=== PATIENT | female | born 1990 | race Caucasian/White ===

== ENCOUNTER 2021-10-06 04:42 | Emergency (ER) | payer BC ==
[2021-10-06 06:22] LABS: ESTIMATED GFR > 60 mL/min (>60)
== END 2021-10-06 08:53 | disposition home or self-care (01) ==
LOC: JD.ED 04:42
DX: O20.0 Threatened abortion (principal); Z3A.01 Less than 8 weeks gestation of pregnancy; Z88.0 Allergy status to penicillin
CPT/HCPCS: 36415; 76817; 76817-26; 80053; 81001; 81003; 84702; 85025; 86850; 86900; 86901; 99283; 99284-25

== ENCOUNTER 2022-01-10 04:25 | Emergency (ER) | payer BC ==
[2022-01-10 05:24] LABS: ESTIMATED GFR 119 mL/min (>60)
== END 2022-01-10 06:29 | disposition home or self-care (01) ==
LOC: JD.ED 04:25
DX: O99.891 Other specified diseases and conditions complicating pregnancy (principal); M79.661 Pain in right lower leg; M79.662 Pain in left lower leg; Z88.0 Allergy status to penicillin; Z3A.20 20 weeks gestation of pregnancy
CPT/HCPCS: 36415; 80053; 85025; 85610; 85730; 93970; 93970-26; 99284

== ENCOUNTER 2022-05-08 07:02 | Inpatient (IN) | payer BC ==
[~2022-05-08 07:02] MED LIST: Lidocaine 1% 10 ML MDV ONE
[2022-05-08] MEDS ORDERED: Ondansetron 4 MG/2 ML SDV IVPUSH PRN (07:08)
[2022-05-08] MEDS ORDERED: Sodium Chloride 0.9% 10 ML Syringe FLUSH PRN (07:08)
[2022-05-08] MEDS ORDERED: Nalbuphine 10 MG/0.5 ML Syringe IVPUSH PRN (07:08)
[2022-05-08] MEDS ORDERED: Acetaminophen 325 MG Tab PO PRN ×2 (07:08→19:16)
[2022-05-08] MEDS ORDERED: Oxytocin/Lactated Ringers 10 UNIT/1,000 ML BAG IV SCH ×2 (07:15)
[2022-05-08] MEDS: Lactated Ringers 1,000 ML IV SCH ×2 (07:55→14:29)
[2022-05-08 08:02] LABS: ESTIMATED GFR 102 mL/min (>60)
[2022-05-08] MEDS ORDERED: Sodium Chloride 0.9% 10 ML Syringe FLUSH SCH (09:00)
[2022-05-08] MEDS ORDERED: ePHEDrine 50 MG/ML SDV IVPUSH PRN (13:28)
[2022-05-08] MEDS ORDERED: diphenhydrAMINE 50 MG/ML SDV IVPUSH PRN (13:28)
[2022-05-08] MEDS ORDERED: Bupivacaine/fentaNYL/NS 100 ML Bag EPIDUR PRN (13:28)
[2022-05-08] MEDS ORDERED: fentaNYL 100 MCG/2 ML SDV EPIDUR PRN (13:28)
[2022-05-08] MEDS ORDERED: Misoprostol 200 MCG Tab PO STA (18:41)
[2022-05-08] MEDS ORDERED: Witch Hazel Medicated Pads 40/Jar TOP PRN (19:16)
[2022-05-08] MEDS ORDERED: Benzocaine/Menthol 20%-0.5% Spray 78 GM Cannister TOP PRN (19:16)
[2022-05-08] MEDS ORDERED: Docusate Sodium 100 MG Cap PO PRN (19:16)
[2022-05-09] MEDS ORDERED: Atropine/Diphenoxylate 0.025-2.5 MG Tab PO PRN (00:16)
[2022-05-09] MEDS: Ibuprofen 600 MG Tab PO PRN ×2 (07:31→15:37)
== END 2022-05-10 10:40 | disposition home or self-care (01) | DRG 560 ==
LOC: JD.OB 07:02
PROVIDERS: ADMIT Obstetrics & Gynecology; ATTEND Obstetrics & Gynecology
PROC: 10D07Z6 Extraction of Products of Conception, Vacuum, Via Natural or Artificial Opening (ICD-10-PCS; principal; 2022-05-08)
PROC: 10907ZC Drainage of Amniotic Fluid, Therapeutic from Products of Conception, Via Natural or Artificial Opening (ICD-10-PCS; 2022-05-08)
PROC: 3E033VJ Introduction of Other Hormone into Peripheral Vein, Percutaneous Approach (ICD-10-PCS; 2022-05-08)
PROC: 0KQM0ZZ Repair Perineum Muscle, Open Approach (ICD-10-PCS; 2022-05-08)
PROC: 3E0R3BZ Introduction of Anesthetic Agent into Spinal Canal, Percutaneous Approach (ICD-10-PCS; 2022-05-08)
PROC: 00HU33Z Insertion of Infusion Device into Spinal Canal, Percutaneous Approach (ICD-10-PCS; 2022-05-08)
DX: O13.4 Gestational [pregnancy-induced] hypertension without significant proteinuria, complicating childbirth (principal); O24.424 Gestational diabetes mellitus in childbirth, insulin controlled; O75.81 Maternal exhaustion complicating labor and delivery; Z3A.37 37 weeks gestation of pregnancy; Z37.0 Single live birth; Z79.4 Long term (current) use of insulin; O70.1 Second degree perineal laceration during delivery
CPT/HCPCS: 01967; 36415; 51701; 51702; 59025; 59409; 82565; 82570; 84156; 84450; 84460; 85027; 86592; 86850; 86900; 86901; A9270-GY; J2590; J3010; J7120

== ENCOUNTER 2022-06-19 17:54 | Emergency (ER) | payer BC ==
[2022-06-19] MEDS ORDERED: Aluminum Hydroxide/Magnesium Hydroxide/Simethicone Susp 30 ML Cup PO ONE (19:30)
== END 2022-06-19 21:01 | disposition home or self-care (01) ==
LOC: JD.ED 17:54
DX: K22.4 Dyskinesia of esophagus (principal); Z01.30 Encounter for examination of blood pressure without abnormal findings; Z88.0 Allergy status to penicillin
CPT/HCPCS: 36415; 71045; 71045-26; 80053; 82553; 83615; 84484; 85025; 85379; 86140; 93005; 93010; 99284; 99285

== ENCOUNTER 2025-03-30 01:38 | Inpatient (IN) | payer BC ==
[2025-03-30] MEDS ORDERED: Sodium Chloride 0.9% 10 ML Syringe FLUSH PRN (02:15)
[2025-03-30] MEDS ORDERED: Lactated Ringers 1,000 ML IV SCH (02:15)
[2025-03-30] MEDS ORDERED: Ondansetron 4 MG/2 ML SDV IVPUSH PRN (02:15)
[2025-03-30] MEDS ORDERED: Nalbuphine 10 MG/1 ML Vial IVPUSH PRN (02:15)
[2025-03-30] MEDS ORDERED: Oxytocin/0.9 % Sodium Chloride 30 UNIT/500 ML BAG IV SCH (02:15)
[2025-03-30 02:30] LABS: BASOPHILS ABSOLUTE AUTO 0.0 K/mm3 (0.0-0.2); BASOPHILS PERCENT AUTO 0.2 % (0.0-1.0); EOSINOPHILS ABSOLUTE AUTO 0.1 K/mm3 (0.0-0.4); EOSINOPHILS PERCENT AUTO 0.5 % (0.0-6.0); IMMATURE GRAN ABSOLUTE AUTO 0.04 K/mm3 (0.00-0.05); IMMATURE GRAN PERCENT AUTO 0.3 % (0.0-0.4); LYMPHOCYTES ABSOLUTE AUTO 2.4 K/mm3 (1.0-4.8); LYMPHOCYTES PERCENT AUTO 18.4 % (24.0-44.0); MEAN PLATELET VOLUME 11.5 fl (9.4-12.3); MONOCYTES ABSOLUTE AUTO 1.1 K/mm3 (0.0-0.8); MONOCYTES PERCENT AUTO 8.6 % (0.0-8.0); NEUTROPHILS ABSOLUTE AUTO 9.6 K/mm3 (1.8-7.7); NEUTROPHILS PERCENT AUTO 72.0 % (41.0-71.0); NRBC ABSOLUTE 0.00 (0.00-0.02); NRBC PERCENT 0.0 % (0.0-0.2); PLATELET COUNT,PLT 188 K/mm3 (150-400); RED BLOOD CELL COUNT 4.48 M/mm3 (4.10-5.30); WHITE BLOOD CELL COUNT,WBC 13.27 K/mm3 (3.9-11.3)
[2025-03-30] MEDS ORDERED: Oxytocin 10 Units/1 ML SDV ONE (02:37)
[2025-03-30] MEDS: Oxytocin 10 Units/1 ML SDV IM ONE (02:55)
[2025-03-30] MEDS ORDERED: Benzocaine/Menthol 20%-0.5% Spray 78 GM Cannister TOP PRN (03:40)
[2025-03-30] MEDS ORDERED: Witch Hazel Medicated Pads 40/Jar TOP PRN (03:40)
[2025-03-30] MEDS ORDERED: Sodium Chloride 0.9% 10 ML Syringe FLUSH SCH (09:00)
== END 2025-03-31 11:00 | disposition home or self-care (01) | DRG 560 ==
LOC: JD.OBCHECK 01:38 → JD.OB 01:43 → JD.OBCHECK 02:22 → JD.OB 02:49 → OBSVTOIN 03:38
PROVIDERS: ADMIT Obstetrics & Gynecology; ATTEND Obstetrics & Gynecology
PROC: 10E0XZZ Delivery of Products of Conception, External Approach (ICD-10-PCS; principal; 2025-03-30)
PROC: 0HQ9XZZ Repair Perineum Skin, External Approach (ICD-10-PCS; 2025-03-30)
DX: O24.420 Gestational diabetes mellitus in childbirth, diet controlled (principal); Z3A.38 38 weeks gestation of pregnancy; Z37.0 Single live birth; O70.0 First degree perineal laceration during delivery
CPT/HCPCS: 36415; 59025; 59409; 82947; 85025; 86592; 86850; 86900; 86901; A9270-GY; J2003; J2590